=== PATIENT | male | born 1985 | race Caucasian/White ===

== ENCOUNTER 2016-07-12 07:35 | Emergency (ER) | payer MEDICAID, OTHER ==
[2016-07-12] MEDS ORDERED: LORazepam 2 MG/ML INJ IVP ONE ×2 (07:57→09:01)
--- NOTE | 2016-07-12 07:57 | EDPHY ---
HPI/HX/ROS/PE/MDM Narrative: CHIEF COMPLAINT: "withdrawing off OxyContin" HPI: The patient is a 31 y/o male, with prior history of opiate withdrawal, complaining of nausea, vomiting, and anxiety 48 hours after discontinuing OxyContin. He reports he uses opiates recreationally and most recently was taking 60mg of OxyContin daily. He last went through withdrawal 1 year ago. He says his symptoms are generally treated successfully with Zofran and Ativan. He denies any other symptoms including abdominal pain or fever. No other pertinent medical history. REVIEW OF SYSTEMS: Aside from elements discussed in the HPI, a comprehensive 10-point review of systems was reviewed and is negative. PMH: Opiate abuse, no abdominal surgeries SOCIAL HISTORY: Opiate abuse. Lives in [place]. PHYSICAL EXAM: General:Patient is alert, in no acute distress. ENT:Eyes are normal to inspection. ENT inspection normal. Neck: Normal inspection. Full range of motion. Respiratory:No respiratory distress. Breath sounds normal bilaterally. Cardiovascular: Regular rate and rhythm. Strong peripheral pulses. Normal cap refill. Abdomen:The abdomen is nontender to palpation. There are no peritoneal signs. There are normal bowel sounds. Back: Normal to inspection. No tenderness to palpation. Skin: Normal color. No rash. Warm and dry. Extremities: Normal appearance. Full range of motion. Neuro: Oriented x3. Normal motor function. Normal sensory function. ED Course: IV established. Labs drawn including CBC, CHEM. 1L IV NS, 4mg IV Zofran, 1mg IV Ativan administered for symptoms. 0838: Patient continues to be nauseated and is retching. 12.5mg IV Phenergan administered. 0900: Patient is complaining of worsening nausea and is curled up on the bed. 4mg IV Zofran and 1mg IV Ativan administered. 1020: Patient has now ripped out 2 separate IVs. Because he is an IV drug user, RNs are unable to find another IV site. Reassessed patient and he tells me he accidentally pulled out each of them. He is requesting opiates. I discussed that we do not give narcotics in the ED for his complaint. He is no longer vomiting or retching. I offered PO Ativan, but the patient requested Xanax instead. 1mg PO Xanax administered. - Data Points Laboratory Results: Laboratory Results 07/12/16 07:55 07/12/16 09:12 07/12/16 07/12/16 09:12 07:55 WBC 7.09 10^3/uL 10^3/uL (3.80-9.50) RBC 6.33 10^6/uL 10^6/uL (4.40-6.38) Hgb 17.6 g/dL H g/dL (13.7-17.5) Hct 52.3 % H % (40.0-51.0) MCV 82.6 fL fL (81.5-99.8) MCH 27.8 pg L pg (27.9-34.1) MCHC 33.7 g/dL g/dL (32.4-36.7) RDW 13.1 % % (11.5-15.2) Plt Count 328 10^3/uL 10^3/uL (150-400) MPV 10.8 fL fL (8.7-11.7) Neut % (Auto) 54.0 % % (39.3-74.2) Lymph % (Auto) 34.8 % % (15.0-45.0) [place] % (Auto) 7.9 % % (4.5-13.0) Eos % (Auto) 2.3 % % (0.6-7.6) Baso % (Auto) 0.6 % % (0.3-1.7) Nucleat RBC Rel Count 0.0 % % (0.0-0.2) Absolute Neuts (auto) 3.83 10^3/uL 10^3/uL (1.70-6.50) Absolute Lymphs (auto) 2.47 10^3/uL 10^3/uL (1.00-3.00) Absolute Monos (auto) 0.56 10^3/uL 10^3/uL (0.30-0.80) Absolute Eos (auto) 0.16 10^3/uL 10^3/uL (0.03-0.40) Absolute Basos (auto) 0.04 10^3/uL 10^3/uL (0.02-0.10) Absolute Nucleated RBC 0.00 10^3/uL 10^3/uL (0-0.01) Immature Gran % 0.4 % % (0.0-1.1) Immature Gran # 0.03 10^3/uL 10^3/uL (0.00-0.10) Sodium 147 mEq/L H mEq/L (134-144) Potassium 4.2 mEq/L mEq/L (3.5-5.2) Chloride 110 mEq/L mEq/L (97-110) Carbon Dioxide 22 mEq/l mEq/l (22-31) Anion Gap 15 mEq/L mEq/L (8-16) BUN 9 mg/dL mg/dL (7-23) Creatinine 0.8 mg/dL mg/dL (0.7-1.3) Estimated GFR > 60 Glucose 113 mg/dL H mg/dL (70-100) Calcium 9.5 mg/dL mg/dL (8.5-10.4) Medications Given: Discontinued Medications Sodium Chloride (Ns) 1,000 mls @ 0 mls/hr IV ONCE ONE PRN Reason: Wide Open Stop: 07/12/16 07:59 Last Admin: 07/12/16 07:58 Dose: 1,000 mls Lorazepam (Ativan Injection) 1 mg IVP EDNOW ONE Stop: 07/12/16 07:58 Last Admin: 07/12/16 08:07 Dose: 1 mg Lorazepam (Ativan Injection) 1 mg IVP EDNOW ONE Stop: 07/12/16 09:02 Last Admin: 07/12/16 09:18 Dose: 1 mg Ondansetron HCl (Zofran) 4 mg IVP EDNOW ONE Stop: 07/12/16 07:59 Last Admin: 07/12/16 08:09 Dose: 4 mg Ondansetron HCl (Zofran) 4 mg IVP EDNOW ONE Stop: 07/12/16 09:00 Last Admin: 07/12/16 09:18 Dose: 4 mg Promethazine HCl (Phenergan) 12.5 mg IVP EDNOW ONE Stop: 07/12/16 08:39 Last Admin: 07/12/16 08:41 Dose: 12.5 mg General Initial Vital Signs: Initial Vital Signs Heart Rate 110 H 07/12/16 07:37 Respiratory Rate 20 07/12/16 07:37 Blood Pressure 144/128 H 07/12/16 07:37 O2 Sat (%) 97 07/12/16 07:37 O2 Delivery Mode Room Air Allergies/Adverse Reactions: No Known Allergies Allergy (Unverified 07/25/09 08:18) Home Medications: Medication Instructions Recorded Subutex 07/25/09 Departure - Departure Disposition: Home, Routine, Self-Care Clinical Impression: Opiate withdrawal Nausea and vomiting Qualifiers: Vomiting type: unspecified Vomiting Intractability: non-intractable Qualified Code(s): R11.2 - Nausea with vomiting, unspecified Condition: Good Instructions: Opioid Withdrawal (ED) Additional Instructions: Discontinue narcotic use. Follow up with your primary care provider for continued symptoms. Referrals: Patient,NotPresent [Primary Care Provider] - As per Instructions [facility],. [Clinic] - As per Instructions Report Scribed for: Bentley Villa Report Scribed by: Karina Solo Date of Report: 07/12/16 Time of Report: 07:43 Physician Review and Approval Statement: Portions of this note were transcribed by an ED scribe. I personally performed the history, physical exam, and medical decision making; and confirm the accuracy of the information in the transcribed note.
[2016-07-12] MEDS ORDERED: NS 1,000 ML IV ONE (07:58)
[2016-07-12] MEDS ORDERED: ONDANSETRON 4 MG/2 ML VIAL IVP ONE ×2 (07:58→08:59)
[2016-07-12 08:02] LABS: % IMMATURE GRANULYOCYTES 0.4 % (0.0-1.1); ABSOLUTE IMMATURE GRANULOCYTES 0.03 10^3/uL (0.00-0.10); ADD DIFF? NO; ADD MORPH? NO; ADD SCAN? NO; ATYPICAL LYMPHOCYTE FLAG 10 (0-99); FRAGMENT RBC FLAG 0 (0-99); HEMATOCRIT 52.3 % (40.0-51.0); HEMOGLOBIN 17.6 g/dL (13.7-17.5); LEFT SHIFT FLG 0 (0-99); LIPEMIA HEMOLYSIS FLAG 80 (0-99); MEAN CELL HEMOGLOBIN 27.8 pg (27.9-34.1); MEAN CELL HEMOGLOBIN CONCENTR. 33.7 g/dL (32.4-36.7); MEAN CELL VOLUME 82.6 fL (81.5-99.8); MEAN PLATELET VOLUME 10.8 fL (8.7-11.7); PLATELET CLUMPS FLAG 0 (0-99); PLATELET COUNT 328 10^3/uL (150-400); RED BLOOD CELL COUNT 6.33 10^6/uL (4.40-6.38); RED CELL DISTRIBUTION WIDTH 13.1 % (11.5-15.2)
[2016-07-12 08:35] VITALS: RESP 16
[2016-07-12] MEDS ORDERED: PROMETHAZINE HCL 25 MG/ML INJ IVP ONE (08:38)
[2016-07-12 09:53] LABS: ANION GAP 15 mEq/L (8-16); CALCIUM 9.5 mg/dL (8.5-10.4); CARBON DIOXIDE 22 mEq/l (22-31); CHLORIDE 110 mEq/L (97-110); CREATININE 0.8 mg/dL (0.7-1.3); GLOMERULAR FILTRATION RATE > 60; GLUCOSE 113 mg/dL (70-100); POTASSIUM 4.2 mEq/L (3.5-5.2); SODIUM 147 mEq/L (134-144)
[2016-07-12] MEDS ORDERED: ALPRAZolam 1 MG TAB PO ONE ×2 (10:26→12:00)
[2016-07-12 12:14] VITALS: BP 145/94; PULSE 74; TEMP 98.4; O2SAT 95
== END 2016-07-12 12:14 | disposition home or self-care (01) ==
DX: F11.23 Opioid dependence with withdrawal (principal)
CPT/HCPCS: 96374; J2060; J2405; J2550

== ENCOUNTER 2016-07-14 05:50 | Emergency (ER) | payer MEDICAID ==
[2016-07-14] MEDS ORDERED: ONDANSETRON 4 MG/2 ML VIAL ONE (05:59)
[2016-07-14] MEDS ORDERED: ONDANSETRON 4 MG/2 ML VIAL IVP ONE ×2 (06:07→06:48)
--- NOTE | 2016-07-14 06:14 | EDPHY ---
H & P Stated Complaint: vomiting x8h; withdrawing fm heroin, last use 3d ago Source: Patient - Medical/Surgical History Other PMH: Otherwise healthy HPI/ROS: HPI CHIEF COMPLAINT: "I am going through heroin withdrawal" HISTORY OF PRESENT ILLNESS: This patient very pleasant 31-year-old male, significant past medical history for heroin use, opiate addiction, and heroin withdraw. Patient presents emergency room with nausea, vomiting, anxiety after states he is going through heroin withdrawal. Last used heroin yesterday. He use it regularly. He has not been clean in over a year. Been using heroin for over 8 years. Lives locally here [place]. His main complaint is anxiety and nausea vomiting. He specifically requesting IV fluids, IV Zofran and IV Ativan. Past Medical History: Heroin addiction Past Surgical History: No recent surgery Social History: Daily heroin use, denies other illicit drugs or alcohol Family History: Noncontributory ROS REVIEW OF SYSTEMS: A comprehensive 10 point review of systems is otherwise negative aside from elements mentioned in the history of present illness. Exam Constitutional appears nauseous triage nursing summary reviewed, vital signs reviewed, awake/alert. Eyes normal conjunctivae and sclera, EOMI, PERRLA. HENT normal inspection, atraumatic, moist mucus membranes, no epistaxis, neck supple/ no meningismus, no raccoon eyes. Respiratory clear to auscultation bilaterally, normal breath sounds, no respiratory distress, no wheezing. Cardiovascular rate normal, regular rhythm, no murmur, no edema, distal pulses normal. Gastrointestinal soft, non-tender, no rebound, no guarding, normal bowel sounds, no distension, no pulsatile mass. Genitourinary no CVA tenderness. Musculoskeletal no midline vertebral tenderness, full range of motion, no calf swelling, no tenderness of extremities, no meningismus, good pulses, neurovascularly intact. Skin pink, warm, & dry, no rash, skin atraumatic. Neurologic awake, alert and oriented x 3, AAOx3, moves all 4 extremities equally, motor intact, sensory intact, CN II-XII intact, normal cerebellar, normal vision, normal speech. Psychiatric normal mood/affect. Heme/Lymph/Immune no lymphadenopathy. Differential Diagnosis: Includes but is not limited to in a particular order opiate withdrawal, acute nausea vomiting from opiate withdrawal, anxiety Medical Decision Making: Plan for this patient IV establishment, IV fluid bolus 2 L normal saline, IV Ativan 1 mg, IV Zofran 4 mg. Re-evaluation Re-evaluation: 0700: Patient is feeling slightly better after IV Ativan IV fluids he still feels nauseous. He has had a total 2 mg IV Ativan, 8 mg IV Zofran, he has finished his 1st L of fluid and will receive 1 more L fluid and 2.5 mg IV Haldol. If his nausea vomiting is under control he can be discharged. (Jayden Brennan) Constitutional: Initial Vital Signs Heart Rate 85 07/14/16 05:53 Respiratory Rate 16 07/14/16 05:53 Blood Pressure 128/115 H 07/14/16 05:53 O2 Sat (%) 99 07/14/16 05:53 O2 Delivery Mode Room Air Allergies/Adverse Reactions: No Known Allergies Allergy (Unverified 07/25/09 08:18) Home Medications: Medication Instructions Recorded NK [No Known Home Meds] 07/14/16 Medical Decision Making ED Course/Re-evaluation: The patient was turned over to me by Dr. Brennan at shift change. The patient did receive some IV Haldol for retching. The patient presents to the ED with symptoms secondary to underlying narcotic withdrawal. The patient did receive IV benzodiazepines and IV fluids. The patient has no additional acute complaints. The patient was reassessed at 8:20 p.m.. At this point time his symptoms are stable. I do feel that he can be discharged [facility] for further medical detox from his heroin. (Lawrence Holloway) - Data Points Laboratory Results: Laboratory Results 07/14/16 06:34 07/14/16 06:34 07/14/16 07/14/16 06:34 06:34 WBC 12.47 10^3/uL H 10^3/uL (3.80-9.50) RBC 5.32 10^6/uL 10^6/uL (4.40-6.38) Hgb 14.9 g/dL g/dL (13.7-17.5) Hct 43.8 % % (40.0-51.0) MCV 82.3 fL fL (81.5-99.8) MCH 28.0 pg pg (27.9-34.1) MCHC 34.0 g/dL g/dL (32.4-36.7) RDW 13.3 % % (11.5-15.2) Plt Count 260 10^3/uL D 10^3/uL (150-400) MPV 11.0 fL fL (8.7-11.7) Neut % (Auto) 75.0 % H % (39.3-74.2) Lymph % (Auto) 16.6 % % (15.0-45.0) [place] % (Auto) 7.1 % % (4.5-13.0) Eos % (Auto) 0.5 % L % (0.6-7.6) Baso % (Auto) 0.3 % % (0.3-1.7) Nucleat RBC Rel Count 0.0 % % (0.0-0.2) Absolute Neuts (auto) 9.35 10^3/uL H 10^3/uL (1.70-6.50) Absolute Lymphs (auto) 2.07 10^3/uL 10^3/uL (1.00-3.00) Absolute Monos (auto) 0.89 10^3/uL H 10^3/uL (0.30-0.80) Absolute Eos (auto) 0.06 10^3/uL 10^3/uL (0.03-0.40) Absolute Basos (auto) 0.04 10^3/uL 10^3/uL (0.02-0.10) Absolute Nucleated RBC 0.00 10^3/uL 10^3/uL (0-0.01) Immature Gran % 0.5 % % (0.0-1.1) Immature Gran # 0.06 10^3/uL 10^3/uL (0.00-0.10) Sodium 142 mEq/L mEq/L (134-144) Potassium 4.1 mEq/L mEq/L (3.5-5.2) Chloride 107 mEq/L mEq/L (97-110) Carbon Dioxide 21 mEq/l L mEq/l (22-31) Anion Gap 14 mEq/L mEq/L (8-16) BUN 17 mg/dL mg/dL (7-23) Creatinine 0.9 mg/dL mg/dL (0.7-1.3) Estimated GFR > 60 Glucose 107 mg/dL H mg/dL (70-100) Calcium 8.9 mg/dL mg/dL (8.5-10.4) Total Bilirubin 1.0 mg/dL mg/dL (0.1-1.4) Conjugated Bilirubin 0.4 mg/dL mg/dL (0.0-0.5) Unconjugated Bilirubin 0.6 mg/dL mg/dL (0.0-1.1) AST 21 IU/L IU/L (17-59) ALT 26 IU/L IU/L (21-72) Alkaline Phosphatase 64 IU/L IU/L (38-126) Total Protein 6.7 g/dL g/dL (6.3-8.2) Albumin 4.3 g/dL g/dL (3.5-5.0) Lipase 128.0 IU/L IU/L (23-300) Medications Given: Discontinued Medications Haloperidol Lactate (Haldol Injection) 2.5 mg IVP EDNOW ONE Stop: 07/14/16 07:01 Last Admin: 07/14/16 07:13 Dose: 2.5 mg Haloperidol Lactate (Haldol Injection) 2.5 mg IVP EDNOW ONE Stop: 07/14/16 07:49 Last Admin: 07/14/16 08:01 Dose: 2.5 mg Sodium Chloride (Ns) 2,000 mls @ 0 mls/hr IV ONCE ONE PRN Reason: Wide Open Stop: 07/14/16 06:17 Last Admin: 07/14/16 06:19 Dose: 2,000 mls Lorazepam (Ativan Injection) 1 mg IVP EDNOW ONE Stop: 07/14/16 06:17 Last Admin: 07/14/16 06:20 Dose: 1 mg Lorazepam (Ativan Injection) 1 mg IVP EDNOW ONE Stop: 07/14/16 06:26 Last Admin: 07/14/16 06:48 Dose: 1 mg Ondansetron HCl (Zofran) 4 mg IVP EDNOW ONE Stop: 07/14/16 06:08 Last Admin: 07/14/16 06:09 Dose: 4 mg Ondansetron HCl (Zofran) 4 mg IVP EDNOW ONE Stop: 07/14/16 06:49 Last Admin: 07/14/16 06:49 Dose: 4 mg Departure - Departure Disposition: Home, Routine, Self-Care Clinical Impression: Opiate withdrawal Vomiting Qualifiers: Vomiting type: unspecified Vomiting Intractability: intractable Nausea presence : with nausea Qualified Code(s): R11.2 - Nausea with vomiting, unspecified Condition: Good Instructions: Narcotic Abuse (ED), Acute Nausea and Vomiting (ED) Additional Instructions: 1. Please go to the [facility] as they offer treatment for narcotic withdrawal. In the future, you should consider using the [facility] for your symptoms of narcotic withdrawal as they have medical treatments available at their facility. Referrals: [facility] [Outside] - As per Instructions
[2016-07-14] MEDS ORDERED: LORazepam 2 MG/ML INJ IVP ONE ×2 (06:16→06:25)
[2016-07-14] MEDS ORDERED: NS 2,000 ML IV ONE (06:16)
[2016-07-14] MEDS ORDERED: LORazepam 2 MG/ML INJ ONE (06:17)
[2016-07-14] MEDS ORDERED: HALOPERIDOL LACT 5 MG/ML INJ IVP ONE ×2 (07:00→07:48)
[2016-07-14 07:03] LABS: % IMMATURE GRANULYOCYTES 0.5 % (0.0-1.1); ABSOLUTE IMMATURE GRANULOCYTES 0.06 10^3/uL (0.00-0.10); ADD DIFF? NO; ADD MORPH? NO; ADD SCAN? YES; ATYPICAL LYMPHOCYTE FLAG 10 (0-99); FRAGMENT RBC FLAG 0 (0-99); HEMATOCRIT 43.8 % (40.0-51.0); HEMOGLOBIN 14.9 g/dL (13.7-17.5); LEFT SHIFT FLG 10 (0-99); LIPEMIA HEMOLYSIS FLAG 90 (0-99); MEAN CELL VOLUME 82.3 fL (81.5-99.8); PLATELET CLUMPS FLAG 220 (0-99); RED BLOOD CELL COUNT 5.32 10^6/uL (4.40-6.38); RED CELL DISTRIBUTION WIDTH 13.3 % (11.5-15.2)
[2016-07-14 07:13] LABS: ALANINE AMINOTRANSFERASE 26 IU/L (21-72); ALBUMIN 4.3 g/dL (3.5-5.0); ALKALINE PHOSPHATASE 64 IU/L (38-126); ANION GAP 14 mEq/L (8-16); ASPARTATE AMINOTRANSFERASE 21 IU/L (17-59); BILIRUBIN-CONJUGATED 0.4 mg/dL (0.0-0.5); BILIRUBIN-UNCONJUGATED 0.6 mg/dL (0.0-1.1); CALCIUM 8.9 mg/dL (8.5-10.4); CARBON DIOXIDE 21 mEq/l (22-31); CHLORIDE 107 mEq/L (97-110); CREATININE 0.9 mg/dL (0.7-1.3); GLOMERULAR FILTRATION RATE > 60; GLUCOSE 107 mg/dL (70-100); POTASSIUM 4.1 mEq/L (3.5-5.2); SODIUM 142 mEq/L (134-144); TOTAL PROTEIN 6.7 g/dL (6.3-8.2)
[2016-07-14 07:31] LABS: SCAN NEGATIVE
[2016-07-14 07:32] LABS: PLATELET COUNT 260 10^3/uL (150-400)
[2016-07-14] MEDS ORDERED: CHLORDIAZEPOXIDE 25MG PREPK#6 BTL TAKEHOME ONE (08:24)
[2016-07-14 08:44] VITALS: BP 146/86; PULSE 69; RESP 18; TEMP 98.4; O2SAT 95
== END 2016-07-14 09:00 | disposition home or self-care (01) ==
DX: R11.2 Nausea with vomiting, unspecified (principal); F11.23 Opioid dependence with withdrawal
CPT/HCPCS: 96374; J2060; J2405